=== PATIENT | male | born 1955 | race Caucasian/White ===

== ENCOUNTER 2017-03-01 11:02 | Emergency (ER) | payer MEDICARE, MEDICAID ==
[~2017-03-01] VITALS: Ht 182.9 cm; Wt 89.5 kg
[~2017-03-01 11:02] MED LIST changes: -AMOX-355 PO
--- OUTSIDE RECORDS SUMMARY | 2017-03-01 11:07 | XMS REPORT | Continuity of Care Document ---
Author Author [facility] Organization [facility] Address Unknown Phone Unavailable Care Team Providers Care Services Executive Name Role Phone ELEANOR SANDOVAL MD PCP [phone] Insurance Providers Payer Name Policy Number Subscriber Name Relationship Medicare A And B [id number] Pratik Valencia 18 Self / Same As Patient [facility] [id number] Pratik Valencia 16 Self / Same As Patient Chief Complaint and Reason for Visit Chief Complaint Altered Neurologic Status Reason for Visit Hypoglycemia Problems Medical Problems Problem Onset Date Status thrush 03/25/2013 Resolved Blood glucose abnormal 09/01/2013 Active Cellulitis 09/04/2013 Active Diabetic complication 09/04/2013 Active Diabetic neuropathy 09/04/2013 Active 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 Ketoacidosis in diabetes mellitus 09/05/2013 Active Cellulitis of leg 10/01/2013 Active Hyperkalemia 05/15/2014 Active Altered mental status 01/13/2015 Active Diabetic nephropathy 01/15/2015 Active CHF (congestive heart failure) 01/15/2015 Active Pain ~01/23/2015 Active Headache ~01/23/2015 Active Hypoglycemia Unknown Active Medications Medication Dose Route Sig Days/Qty Instructions Order Date Discontinued Date Status Oxycodone Hcl 30 Mg ORAL TWICE A DAY PRN up to 5 x daily 03/25/13 Discontinued [Oxycontin] 40 Mg ORAL EVERY 8HRS PRN 03/25/13 09/06/13 Discontinued Carvedilol 25 Mg ORAL TWICE A DAY WITH MEALS 09/03/13 Active Insulin Determir 23 Units SQ TWICE A DAY 09/03/13 09/06/13 Discontinued Insulin Aspart 15 Unit SQ THREE TIMES A DAY 09/03/13 05/11/14 Discontinued Insulin Aspart 16 Unit SQ lunch 09/03/13 09/06/13 Discontinued Insulin Aspart 12 Unit SQ supper 09/03/13 09/06/13 Discontinued Furosemide 40 Mg ORAL DAILY 09/03/13 05/10/14 Discontinued Polyethylene Glycol 17 Gm ORAL DAILY PRN CONSTIPATION 09/03/13 Active Clonidine Hcl 0.1 Mg ORAL TWICE A DAY 09/03/13 09/06/13 Discontinued Atorvastatin 20 Mg ORAL BEDTIME 09/03/13 Active Amlodipine Besylate 10 Mg ORAL DAILY 09/03/13 01/13/15 Discontinued Lisinopril (Zestril) 40 Mg ORAL DAILY 09/03/13 01/13/15 Discontinued Simvastatin 40 Mg ORAL BEDTIME 09/03/13 09/06/13 Discontinued Potassium Chloride 20 Meq ORAL THREE TIMES DAILY WITH MEALS 09/03/13 05/15/14 Discontinued Duloxetine HCl 30 Mg ORAL DAILY 09/03/13 09/06/13 Discontinued Oxycodone Hcl 40 Mg ORAL EVERY 8HRS 09/06/13 05/15/14 Discontinued Insulin Glargine,Hum.rec.anlog 12 Unit SQ BEDTIME 09/06/13 05/10/14 Discontinued Clindamycin HCl 300 Mg ORAL FOUR TIMES DAILY 09/06/13 10/01/13 Discontinued Dextrose 15 Gm ORAL NEEDED PRN HYPOGLYCEMIA 09/06/13 01/13/15 Discontinued Glucagon,Human Recombinant 1 Mg INTAMUSCULAR NEEDED PRN HYPOGLYCEMIA 09/06/13 01/13/15 Discontinued Omeprazole 20 Mg ORAL DAILY 09/06/13 Active Insulin Aspart 5 Unit SQ EVERY 2 HOURS WHILE AWAKE PRN ACCUCHEK ABOVE 250 10/01/13 01/13/15 Discontinued Doxycycline Monohydrate 100 Mg ORAL TWICE A DAY 10/01/13 05/10/14 Discontinued Oxycodone Hcl 30 Mg ORAL NEEDED 10/01/13 05/11/14 Discontinued [Clonidine ] 05/10/14 05/11/14 Discontinued [Lamisil] 05/10/14 05/11/14 Discontinued [Ascriptin] 05/10/14 05/11/14 Discontinued [Lasix 40 Mg] 05/10/14 05/11/14 Discontinued [Catapress] 05/10/14 05/11/14 Discontinued Insulin Aspart 15 Unit SQ THREE TIMES DAILY WITH MEALS 05/11/1405/22 Discontinued Oxycodone Hcl 30 Mg ORAL Q5H PRN PAIN 05/11/14 05/15/14 Discontinued Clonidine Hcl 0.1 Mg ORAL BEDTIME 05/11/14 05/15/14 Discontinued Terbinafine 250 Mg ORAL DAILY 3 Days 05/11/14 05/15/14 Discontinued Aspirin (Aspirin EC) 81 Mg ORAL DAILY 05/11/14 Active Furosemide 40 Mg ORAL BID@05/11/14 01/13/15 Discontinued Clonidine Hcl 0.2 Mg ORAL DAILY 05/11/14 05/15/14 Discontinued Insulin Detemir (Insulin Levemir) 18 Unit SQ BEDTIME 05/11/14 Discontinued Gabapentin 300 Mg ORAL BEDTIME 05/11/14 01/13/15 Discontinued Potassium Chloride 20 Meq ORAL TWICE A DAY WITH MEALS 60 Qty 05/15/14 01/13/15 Discontinued Insulin Aspart 7 Unit SQ THREE TIMES DAILY WITH MEALS 1 Qty 05/15/14 01/13/15 Discontinued Insulin Detemir (Insulin Levemir) 20 Unit SQ BEDTIME 1 Qty 05/15/14 Discontinued Docusate Sodium 100 Mg ORAL TWICE A DAY PRN CONSTIPATION 30 Qty Active Oxycodone Hcl 40 Mg ORAL EVERY 12 HOURS 60 Qty 05/15/14 01/13/15 Discontinued Oxycodone Hcl 30 Mg ORAL EVERY 12 HOURS PRN PAIN 60 Qty 05/15/1401/15 Discontinued Mupirocin 1 Applic TOPICAL TWICE A DAY 1 Qty 05/15/14 01/13/15 Discontinued Hydralazine Hcl 50 Mg ORAL THREE TIMES A DAY 01/13/15 01/15/15 Discontinued Oxycodone Hcl 60 Mg ORAL THREE TIMES A DAY 01/13/15 01/14/15 Discontinued Duloxetine HCl 60 Mg ORAL DAILY 01/13/15 01/15/15 Discontinued Canagliflozin 100 Mg ORAL DAILY 01/13/15 01/13/15 Discontinued Magnesium Hydroxide 400 Mg ORAL NEEDED 01/13/15 Active Nitroglycerin 0.4 Mg SUBLINGUAL NEEDED 01/13/15 Active Insulin Detemir (Insulin Levemir) 34 Unit SUBCUTANEOUS BEDTIME Active Insulin Aspart 15 Unit SQ ACBREAKFAST 01/13/15 Active Insulin Aspart 7 Unit SQ AC LUNCH 01/13/15 Active Insulin Aspart 14 Unit SQ AC SUPPER 01/13/15 Active Oxycodone HCl 60 Mg ORAL EVERY 8HRS 01/14/15 01/15/15 Discontinued Canagliflozin 100 Mg ORAL DAILY 01/14/15 01/15/15 Discontinued Lisinopril (Zestril) 40 Mg ORAL DAILY 01/14/15 01/15/15 Discontinued Oxycodone Hcl 30 Mg ORAL THREE TIMES A DAY PRN PAIN 90 Qty 01/15/15 Discontinued Lisinopril (Zestril) 20 Mg ORAL DAILY 30 Qty 01/15/15 01/25/15 Discontinued Oxycodone Hcl 60 Mg ORAL EVERY 8HRS 90 Qty 01/15/15 Active Lisinopril (Zestril) 20 Mg ORAL TWICE A DAY 01/25/15 Active Oxycodone Hcl 30 Mg ORAL THREE TIMES A DAY PRN PAIN 01/25/15 Active Menthol/Zinc Oxide 3.5 Gm TOPICAL NEEDED 01/25/15 Active [A&D Onit] 0 TOPICAL TWICE A DAY 01/25/15 Active Social History No social history. Hospital Discharge Instructions No hospital discharge instructions. Plan of Care Discharge Date 03/10/15 12:31pm Disposition 01 HOME OR SELF-CARE Condition at Discharge Stable Instructions/Education Provided Diabetes Mellitus Type 2 in Adults (ED) Prescriptions See Medications Section Follow-up Orders BASIC METABOLIC PANEL* BASIC METABOLIC PANEL* B-TYPE NATRIURETIC PEPTIDE Referrals ELEANOR SANDOVAL MD Additional Instructions/Education Follow up with your doctor. Call your doctor in regard to blood sugar/insuling management. ED JAQCUELINE if any worse. Some of your test results may not be complete prior to your leaving the Emergency Department. The Emergency Department is not authorized to give test results over the phone. Please contact the doctor's office listed in this packet of information for your final results. Follow up with your primary care physician or return to the Emergency Department for worsening or worrisome symptoms. * Emergency Department phone number: [phone], x [phone]* MEDICAL RECORD If you need copies of your X-rays, call [phone]. If you need copies of your medical record, including lab results, a signed authorization for release of records will be required. A telephone call for release of Health Information is not allowed. BILLING Billing can sometimes be confusing and frustrating. To help avoid confusion in the future, please take a moment to acquaint yourself with the billing parties for services. SERVICE BILLING [employer] Emergency Room Services [facility] Physician Services [facility] X-rays [facility] Patients will receive bills for services from the appropriate provider. If you have any questions about your [facility] bill, our staff will be happy to assist you. Please call [phone], and ask for the billing department. THANK YOU for choosing [facility] as your emergency care provider! Functional Status No functional status results. Allergies, Adverse Reactions, Alerts Allergen Type Severity Reaction Status Last Updated metoclopramide HCl Allergy Unknown Active 05/10/14 ketorolac tromethamine Allergy Unknown Active 05/10/14 duloxetine HCl Allergy Unknown NAUSEA Active 05/10/14 Acetaminophen Allergy Unknown Active 05/10/14 diphenhydramine Allergy Unknown Active 05/10/14 topiramate Allergy Unknown Active 05/10/14 pregabalin Adverse Reaction Unknown N/V Active 01/25/15 Immunizations No immunization records. Vital Signs Acute Vital Signs Vital Response Date/Time Temperature (Fahrenheit) 97.8 Pulse 71 bpm Respirations 18 Height 6 ft 0 in Weight 222 lb Body Mass Index 30.0 kg/m^2 Results Test Source Date Result Interp. Ref. Range Comments Absolute Band Neutrophils January 13, 2015 2:52pm 0.6 # Acetone Level May 10, 2014 7:00am 2+ MG/DL Negative Collected by nurse? YHas specimen been collected/obtained? Y Activated Partial Thromboplast Time March 10, 2015 10:30am 28.5 SEC N 24.9 -35.9 Alanine Aminotransferase (ALT/SGPT) March 10, 2015 10:30am 25 U/L L 30-65 Albumin March 10, 2015 10:30am 3.3 g/dL L 3.4-5.0 Albumin/Globulin Ratio March 10, 2015 10:30am 1.000 L 1.1-1.8 Alkaline Phosphatase March 10, 2015 10:30am 156 U/L H 38-126 Juvenal Test September 02, 2013 6:20am pos Collected by nurse? NSpecimen Comment: 2 L/nc 2L Ammonia September 02, 2013 9:55am 16 umol/L 9-35 Collected by nurse? NComments to [employer]: on next blood draw Amylase Level January 13, 2015 2:52pm 108 U/L N 25-115 Anion Gap March 10, 2015 10:30am 11.9 MEQ/L N 3-15 Arterial Blood Base Excess September 02, 2013 6:20am 3.0 N -2.0-3.0 Collected by nurse? NSpecimen Comment: 2 L/nc 2L Arterial Blood HCO3 September 02, 2013 6:20am 28.0 MEQ/L H 22.0-26.0 Collected by nurse? NSpecimen Comment: 2 L/nc 2L Arterial Blood Oxygen Saturation September 02, 2013 6:20am 98 % N 95-98 Collected by nurse? NSpecimen Comment: 2 L/nc 2L Arterial Blood Partial Pressure CO2 September 02, 2013 6:20am 47 mmHg H 35 -45 Collected by nurse? NSpecimen Comment: 2 L/nc 2L Arterial Blood Partial Pressure O2 September 02, 2013 6:20am 117 mmHg H 80 -105 Collected by nurse? NSpecimen Comment: 2 L/nc 2L Arterial Blood Total CO2 September 02, 2013 6:20am 30.0 GRACIELA/L H 23.0-27.0 Collected by nurse? NSpecimen Comment: 2 L/nc 2L Arterial Blood pH September 02, 2013 6:20am 7.39 N 7.35-7.45 All ABG Results called to toni brano read back the results. Called by Hector De La O at [id number] Aspartate Amino Transf (AST/SGOT) March 10, 2015 10:30am 24 U/L N 15-37 B-Type Natriuretic Peptide January 13, 2015 5:20pm 143 PG/ML H 0-100 BUN/Creatinine Ratio March 10, 2015 10:30am 22 H 10-20 Band Neutrophils % January 13, 2015 2:52pm 6 % N 0-6 Basophils # (Auto) March 10, 2015 10:30am 0.0 10^3uL Basophils % (Manual) January 13, 2015 2:52pm 0 % N 0-2 Basophils (%) (Auto) March 10, 2015 10:30am 1 % N 0-2 Bedside Venous Blood Total CO2 May 10, 2014 8:28am 12 Collected by nurse? NVenous blood Blood Gas Liter Flow September 02, 2013 6:20am 2.0 LPM Collected by nurse? NSpecimen Comment: 2 L/nc 2L Blood Gas Puncture Site May 10, 2014 8:28am L finger Collected by nurse? NVenous blood Blood Morphology Comment January 13, 2015 2:52pm Normal NORMAL Blood Urea Nitrogen March 10, 2015 10:30am 41 mg/dL DH 7-18 C-Reactive Protein January 13, 2015 2:52pm 1.60 MG/DL H 0.0-0.9 Calcium Level March 10, 2015 10:30am 8.7 mg/dL L 8.8-10.8 Calcium/Ionized Calcium Ratio March 10, 2015 10:30am 4.0 mg/dL N 3.8-4.6 Calculated Osmolality March 10, 2015 10:30am 272 mosm/L L 280-300 Carbon Dioxide Level March 10, 2015 10:30am 22 mmol/L N 22-29 Chloride Level March 10, 2015 10:30am 107 mmol/L N 98-108 Cholesterol Level November 28, 2014 5:00am 115 mg/dL N 50-200 Cholesterol Risk Factor November 28, 2014 5:00am 1.8 N 0.0-5.0 Creatine Kinase MB January 25, 2015 10:23pm 3.2 NG/ML N 0.0-6.0 Creatinine March 10, 2015 10:30am 1.89 mg/dL H 0.8-1.5 Differential Total Cells Counted January 13, 2015 2:52pm 100 Eosinophils # January 13, 2015 2:52pm 0.0 # Eosinophils # (Auto) March 10, 2015 10:30am 0.3 10^3uL Eosinophils % (Manual) January 13, 2015 2:52pm 0 % N 0-4 Eosinophils (%) (Auto) March 10, 2015 10:30am 4 % N 0-4 Erythrocyte Sedimentation Rate November 30, 2014 2:00am 41 mm/hr H 0-19 Estimat Glomerular Filtration Rate March 10, 2015 10:30am 44.1 Estimated GFR (Non- March 10, 2015 10:30am 36.4 Glucose Level March 10, 2015 10:30am 67 mg/dL DL 70-110 HDL Cholesterol November 28, 2014 5:00am 64 mg/dL H 40-60 HDL Triglycerides November 28, 2014 5:00am 78 mg/dL N 10-150 Hematocrit March 10, 2015 10:30am 32.70 % L 39.00-50.00 Hemoglobin March 10, 2015 10:30am 10.5 g/dL L 13.5-17.0 Hemoglobin A1c February 26, 2015 6:00am 8.1 % H 4.0-6.0 LDL Cholesterol (Measured) November 28, 2014 5:00am 35 mg/dL L 50-130 Lipase January 13, 2015 2:52pm 25 U/L N 23-300 Lymphocytes # January 13, 2015 2:52pm 1.0 # Lymphocytes # (Auto) March 10, 2015 10:30am 1.9 X10^3 Lymphocytes % (Manual) January 13, 2015 2:52pm 10 % L 20-46 Lymphocytes (%) (Auto) March 10, 2015 10:30am 24 % N 20-46 Mean Corpuscular Hemoglobin March 10, 2015 10:30am 29.7 PG N 26.0-34.0 Mean Corpuscular Hemoglobin Concent March 10, 2015 10:30am 32.1 g/dL N 31.0-37.0 Mean Corpuscular Volume March 10, 2015 10:30am 92 FL N 80-100 Mean Platelet Volume March 10, 2015 10:30am 9.4 FL N 6.0-9.5 Metamyelocytes % August 15, 2014 5:40am 0 % N 0-1 Microcytosis August 07, 2014 5:30am Slight Monocytes # January 13, 2015 2:52pm 0.4 # Monocytes # (Auto) March 10, 2015 10:30am 0.5 X10^3 Monocytes % (Manual) January 13, 2015 2:52pm 4 % N 3-11 Monocytes (%) (Auto) March 10, 2015 10:30am 7 % N 3-11 RB-Aoo-K-Type Natriuretic Peptide January 13, 2015 5:20pm 1870 pg/mL H 0- 125 <300 ng/mL - HF unlikely Age <50 years, NT-proBNP >450 pg/mL - HF Likely Age 50-75 yrs, NT-proBNP >900 pg/mL - HF Likely Age >75 yrs, NT-proBNP >1800 - HF likely Neutrophils # January 13, 2015 2:52pm 8.3 # Neutrophils # (Auto) March 10, 2015 10:30am 5.1 X10^3 Neutrophils (%) (Auto) March 10, 2015 10:30am 65 % N 51-67 Phosphorus Level January 14, 2015 1:05pm 4.4 MG/DL N 2.4-4.9 Collected by nurse? N Platelet Count March 10, 2015 10:30am 278 10^3uL N 150-450 Potassium Level March 10, 2015 10:30am 4.9 mmol/L N 3.5-5.1 Prothromb Time International Ratio March 10, 2015 10:30am 0.9 N 0.8-1.4 Prothrombin Time March 10, 2015 10:30am 11.9 SEC N 11.9-14.2 Red Blood Count March 10, 2015 10:30am 3.54 10^6uL L 4.50-5.50 Red Cell Distribution Width March 10, 2015 10:30am 13.3 % N 11.8-15.6 Segmented Neutrophils % January 13, 2015 2:52pm 80 % H 51-67 Sodium Level March 10, 2015 10:30am 136 mmol/L N 135-150 Thyroid Stimulating Hormone (TSH) January 13, 2015 2:52pm 1.00 UIU/mL N 0.46-4.68 Total Bilirubin March 10, 2015 10:30am 0.3 mg/dL N 0.1-1.0 Total Creatine Kinase January 25, 2015 10:23pm 82 U/L DN 55-170 Total Protein March 10, 2015 10:30am 6.6 g/dL N 6.4-8.5 Troponin I January 25, 2015 10:23pm < 0.012 ng/mL 0.010-0.080 Ur Tricyclic Antidepressants Screen January 13, 2015 3:40pm Negative Negative Urine collection method Clean Catch Urine Amorphous Sediment May 10, 2014 7:00am 2+ /HPF H Collected by nurse? NUrine collection method Catheter Urine Amphetamines Screen January 13, 2015 3:40pm Negative Negative Urine collection method Clean Catch Urine Bacteria March 10, 2015 11:45am None seen /HPF Urine collection method Clean Catch Urine Barbiturates Screen January 13, 2015 3:40pm Negative Negative Urine collection method Clean Catch Urine Benzodiazepines Screen January 13, 2015 3:40pm Negative Negative Urine collection method Clean Catch Urine Bilirubin March 10, 2015 11:45am Negative Negative Urine collection method Clean Catch Urine Blood January 13, 2015 3:40pm Negative Negative Urine collection method Clean Catch Urine Cannabinoids Screen January 13, 2015 3:40pm Negative Negative Urine collection method Clean Catch Urine Clarity March 10, 2015 11:45am Clear Urine collection method Clean Catch Urine Cocaine Screen January 13, 2015 3:40pm Negative Negative Urine collection method Clean Catch Urine Collection Type March 10, 2015 11:45am Clean catch Urine collection method Clean Catch Urine Color March 10, 2015 11:45am Yellow Urine collection method Clean Catch Urine Glucose (UA) March 10, 2015 11:45am Negative Negative Urine collection method Clean Catch Urine Hyaline Casts March 10, 2015 11:45am 1+ /LPF Urine collection method Clean Catch Urine Ketones March 10, 2015 11:45am Negative Negative Urine collection method Clean Catch Urine Leukocyte Esterase March 10, 2015 11:45am Negative Negative Urine collection method Clean Catch Urine Methadone Screen January 13, 2015 3:40pm Negative Negative Urine collection method Clean Catch Urine Methamphetamines Screen January 13, 2015 3:40pm Negative NEGATIVE Urine collection method Clean Catch Urine Microscopic WBC January 13, 2015 3:40pm 0-2 /HPF Urine collection method Clean Catch Urine Mucus March 10, 2015 11:45am 1+ Urine collection method Clean Catch Urine Nitrite March 10, 2015 11:45am Negative Negative Urine collection method Clean Catch Urine Opiates Screen January 13, 2015 3:40pm Positive H Negative Urine collection method Clean Catch Urine Oxycodone Screen January 13, 2015 3:40pm Positive H NEGATIVE Urine collection method Clean Catch Urine Phencyclidine Screen January 13, 2015 3:40pm Negative Negative Phencyclidine testing by this method can showcross-reactivity with several common medications such as venlafaxine, dextromethorphan, and diphenhydramine. Submission of any positive sample for confirmatory testing is recommended. Urine Propoxyphene Screen January 13, 2015 3:40pm Negative NEGATIVE Results of this screen are qualitative and are presumptiveresults. A more specific method (i.e. GC/MS) must be used if confirmation of results is indicated. Urine Protein March 10, 2015 11:45am 3+ H Negative Urine collection method Clean Catch Urine RBC March 10, 2015 11:45am 0-2 /HPF Urine collection method Clean Catch Urine RBC (Auto) March 10, 2015 11:45am Trace-intact H Negative Urine collection method Clean Catch Urine Specific [place] March 10, 2015 11:45am 1.025 1.005-1.030 Urine collection method Clean Catch Urine Squamous Epithelial Cells March 10, 2015 11:45am 0-2 /LPF Urine collection method Clean Catch Urine Urobilinogen March 10, 2015 11:45am 0.2 mg/dL 0.2-1.0 Urine collection method Clean Catch Urine WBC March 10, 2015 11:45am 0-2 /HPF Urine collection method Clean Catch Urine pH March 10, 2015 11:45am 7.0 5.0 - 8.0 Urine collection method Clean Catch VLDL Cholesterol November 28, 2014 5:00am 16 mg/dL N 4.00-40.00 Vancomycin Level Trough September 05, 2013 11:40am 12.5 UG/ML N 10.0-15.0 Collected by nurse? NCollected by nurse? N Venous Blood Base Excess May 10, 2014 8:28am -17.0 L 3.0-3.0 Collected by nurse? NVenous blood Venous Blood HCO3 May 10, 2014 8:28am 11.0 MEQ/L L 20.0-26.0 Collected by nurse? NVenous blood Venous Blood O2 Saturation (Calc) May 10, 2014 8:28am 87 % H 60-80 Collected by nurse? NVenous blood Venous Blood pCO2 at Patient Temp May 10, 2014 8:28am 27 mmHg L 38-55 Collected by nurse? NVenous blood Venous Blood pH May 10, 2014 8:28am 7.22 L 7.32-7.43 Collected by nurse? NVenous blood Venous Blood pO2 at Patient Temp May 10, 2014 8:28am 62 mmHg H 38-55 Collected by nurse? NVenous blood Volume Urine Centrifuged March 10, 2015 11:45am 12 ml Urine collection method Clean Catch White Blood Count March 10, 2015 10:30am 7.88 10^3uL N 4.0-11.0 Blood Culture Peripheral-:Lab Indicates After Collectio September 02, 2013 1: 10am No Growth in 5 days MRSA Screen Nasal September 03, 2013 12:15am Urine Culture Urine-Mead Cath September 02, 2013 10:15pm Procedures Procedure Status Date Provider(s) GLYCOSYLATED HEMOGLOBIN TEST completed 02/26/15 Encounters Encounter Location Date/Time Departed Emergency Room [facility] 03/10/15 9:51am Registered Clinic [facility] 03/07/15 2:54pm Recent Diagnosis
[2017-03-01] MEDS ORDERED: SODIUM CHLORIDE FLUSH 10 ML SYR IV PRN (11:30)
[2017-03-01] MEDS ORDERED: CEFEPIME 2,000 MG in SODIUM CHLORIDE 100 ML IV ONE (11:30)
[2017-03-01] MEDS ORDERED: OXYC60TA7 PO (11:32)
[2017-03-01] MEDS ORDERED: INSU100I14 SQ (11:32)
[2017-03-01] MEDS ORDERED: TERA5CAP3 PO (11:32)
[2017-03-01] MEDS ORDERED: ERTAPENEM 1 GM in SODIUM CHLORIDE 50 ML IV ONE (11:45)
[2017-03-01 11:55] LABS: BASOPHILS % (AUTO) 1 % (0-2); EOSINOPHILS # (AUTO) 0.2 10^3uL; EOSINOPHILS % (AUTO) 2 % (0-4); MEAN CORPUSCULAR HEMOGLOBIN 28.3 PG (26.0-34.0); MEAN CORPUSCULAR VOLUME 92 FL (80-100); MEAN PLATELET VOLUME 9.1 FL (6.0-9.5); MONOCYTES # (AUTO) 0.5 X10^3; MONOCYTES % (AUTO) 5 % (3-11); NEUTROPHILS # (AUTO) 8.2 X10^3; NEUTROPHILS % (AUTO) 82 % (51-67); PLATELET COUNT 256 10^3uL (150-450); WHITE BLOOD COUNT 10.01 10^3uL (4.0-11.0)
[2017-03-01 11:56] LABS: MEAN CORPUSCULAR HGB CONC 30.8 g/dL (31.0-37.0)
[2017-03-01 12:05] LABS: ALBUMIN 3.1 g/dL (3.4-5.0); ANION GAP 13.7 MEQ/L (3-15); CALCULATED IONIZED CALCIUM 3.5 mg/dL (3.8-4.6); TOTAL PROTEIN 6.9 g/dL (6.4-8.5)
[2017-03-01] MEDS ORDERED: INSULIN REGULAR 1 UNIT/0.01 ML DOSE SC ONE (12:35)
[2017-03-01] MEDS ORDERED: INSULIN LISPRO 1 UNIT/0.01 ML (HUMALOG) DOSE SC ONE (12:40)
[2017-03-01] MEDS ORDERED: AMOX-355 PO (12:56)
[2017-03-01 13:03] VITALS: BP 163/81
== END 2017-03-01 13:07 | disposition home or self-care (01) ==
LOC: EDUNIT# 11:02 → ED 11:03
DX: E11.621 Type 2 diabetes mellitus with foot ulcer (principal); E11.42 Type 2 diabetes mellitus with diabetic polyneuropathy; F17.210 Nicotine dependence, cigarettes, uncomplicated
CPT/HCPCS: 36415; 80053; 85025; 96365; 99283; J1335; J1642

== ENCOUNTER → 2017-03-01 | Outpatient (CLI) | payer MEDICARE, MEDICAID ==
[~2017-03-01] MED LIST: AML5T PO; AMLO10TA4 PO; AMLO10TA82; AMOX-355 PO; AMOX1TAB12 PO; ASCRIPTIN; ASP81TEC PO; ATOR20TA PO; CANA100T PO; CANA300T PO; CARV25TA30 PO; CATAPRESS; CEFE2VIA3 IV; CHOL100048 PO; CLIN-78 PO; CLON0.1T PO; CLON0.1T14 PO; CLON0.2T12 PO; CLONIDINE; CRV25T PO; CTLP20T PO; DOCU-243 PO; DOXY150C PO; DULO30CA PO; DULO60CA7 PO; FAMO20TA13 PO; FRSM40T PO; FURO-124 PO; GABA300C PO; GLUC1KIT IM; GLUC1KIT4 IM; HYDR-3922 PO; INSASP1U SQ; INSU100I14 SQ; INSU100I33 SQ; INSU100I5 SQ; INSU100V32 SQ; INSU100V5 SC; INSU100V5 SQ; LABE100T PO; LAMISIL; LASIX 40 MG; LEVE500T PO; LIRA0.6P2 SC; LSNP20T PO; MAGN400O7 PO; MENT3.5O TP; METO10TA7 PO; MIRALAX 17 GM P17 GM PO; MULT-28 PO; MUPI22OI TOP; NF-LISIN40 PO; NITR0.4T SL; NUT.237L30 PO; OMEP20CA6 PO; ONDA4TAB11 PO; ONDN4T PO; OXC10TCR PO; OXC40TCR PO; OXYC15TA PO; OXYC20TA72 PO; OXYC30TA PO; OXYC30TA80 PO; OXYC40TA46 PO; OXYC60TA7 PO; OXYCONTIN PO; POTA20TA15 PO; SIMV40TA2 PO; TERA1CAP3 PO; TERA5CAP3 PO; TERBIN250T PO; TUBE5VIA ID; VANC500V3 IV; VERA120T6 PO; VERA180T5 PO; VERA360C2 PO; [UNRECOGNIZED DRUG - CODE] PO; [UNRECOGNIZED DRUG - OTHER] TOP
== END ==
LOC: EMS 10:50
PROVIDERS: ATTEND Emergency Medicine
DX: E11.621 Type 2 diabetes mellitus with foot ulcer (principal)

== ENCOUNTER 2017-03-17 16:29 | Emergency (ER) | payer MEDICARE, MEDICAID ==
[~2017-03-17] VITALS: Ht 185.4 cm; Wt 93.0 kg
[~2017-03-17 16:29] MED LIST changes: +AMOX-355 PO
[2017-03-17 16:35] VITALS: BP 136/77
--- OUTSIDE RECORDS SUMMARY | 2017-03-17 16:35 | XMS REPORT | Continuity of Care Document ---
Author Author [facility] Organization [facility] Address Unknown Phone Unavailable Care Team Providers Care Waxer Operator Name Role Phone ELEANOR SANDOVAL MD PCP [phone] Insurance Providers Payer Name Policy Number Subscriber Name Relationship Medicare A And B [id number] Pratik Valencia 16 Self / Same As Patient [facility] [id number] Pratik Valencia 16 Self / Same As [...] in regard to blood sugar/insuling management. ED JACQUELINE if any worse. Some of your test [...] worrisome symptoms. * Emergency Department phone number: [phone], x [phone]* MEDICAL RECORD If you need copies of your X-rays, call [phone] x [phone]. If you need copies of [...] the billing parties for services. SERVICE BILLING [employer] Emergency Room Services [facility] Physician Services [facility] X-rays [facility] Patients will receive bills for services from the appropriate provider. If you have any questions about your [facility] bill, our staff will be happy to assist you. Please call [phone], and ask for the billing department. THANK YOU for choosing [facility] as your emergency care provider! Functional [...] umol/L 9-35 Collected by nurse? NComments to Call Specialist: on next blood draw Amylase Level January [...] 10, 2015 10:30am 7 % N 3-11 [id number]-Type Natriuretic Peptide January 13, 2015 5:20pm 1870 [...] Urine collection method Clean Catch Urine Specific [place] March 10, 2015 11:45am 1.025 1.005-1.030 Urine [...] Encounters Encounter Location Date/Time Departed Emergency Room [facility] 03/10/15 9:51am Registered Clinic [facility] 03/07/15 2:54pm Recent Diagnosis
--- OUTSIDE RECORDS SUMMARY | 2017-03-17 16:36 | XMS REPORT | Continuity of Care Document ---
Author Author [facility] Organization [facility]IS Address Unknown Phone Unavailable Care Team Providers Care Fire Management Technician Name Role Phone ELEANOR SANDOVAL MD PCP [phone] Insurance Providers Payer Name Policy Number Subscriber Name Relationship Medicare A And B [id number] Pratik Valencia 16 Self / Same As Patient [facility] [id number] Pratik Valencia 16 Self / Same As [...] worrisome symptoms. * Emergency Department phone number: [phone], x [phone]* MEDICAL RECORD If you need copies of your X-rays, call [phone] x [phone]. If you need copies of [...] the billing parties for services. SERVICE BILLING [employer] Emergency Room Services [facility] Physician Services [facility] X-rays [facility] Patients will receive bills for services from the appropriate provider. If you have any questions about your [facility] bill, our staff will be happy to assist you. Please call [phone], and ask for the billing department. THANK YOU for choosing [facility] as your emergency care provider! Functional Status [...] umol/L 9-35 Collected by nurse? NComments to [employer]: on next blood draw Amylase Level January [...] Total CO2 September 02, 2013 6:20am 30.0 GRCAIELA/L H 23.0-27.0 Collected by nurse? NSpecimen Comment: [...] 10, 2015 10:30am 7 % N 3-11 [id number]-I-Type Natriuretic Peptide January 13, 2015 5:20pm 1870 [...] Urine collection method Clean Catch Urine Specific [place] March 10, 2015 11:45am 1.025 1.005-1.030 Urine [...] Encounters Encounter Location Date/Time Departed Emergency Room [facility] 03/10/15 9:51am Registered Clinic [facility] 03/07/15 2:54pm Recent Diagnosis
--- NOTE | 2017-03-17 17:01 | NUR ---
Patient report received from Pete Argueta RN. Care of pt now assumed by this nurse.
[2017-03-17] MEDS ORDERED: NICOTINE 21 MG (NICODERM) PATCH TD ONE (17:20)
[2017-03-17] MEDS ORDERED: OXYC80TA42 PO (17:23)
[2017-03-17] MEDS ORDERED: ONDANSETRON 4 MG (ZOFRAN) ORAL DISSOLVE TAB PO ONE (18:05)
--- NOTE | 2017-03-17 18:25 | NUR ---
REPORTS FEELING NAUSEATED BUT IS HUNGRY. GIVEN ZOFRAN 4 MG ODT AND IS EATING FOOD BROUGHT FROM HOME. DR. HUTCHINS AWARE THAT PT IS EATING ZOFRAN GIVEN.
--- NOTE | 2017-03-17 18:50 | NUR ---
PATIENT FREQUENTLY CHANGES POSITION - ECG LEADS AND BP CUFF TUBING FREQUENTLY OFF AND RE-ATTACHED.
[2017-03-17] MEDS ORDERED: SODIUM CHLORIDE 0.9% NEB SOLN 3 ML VIAL ONE (19:04)
[2017-03-17] MEDS ORDERED: ALBUTEROL 0.5% NEB SOLUTION 2.5 MG/0.5 ML VIAL INH ONE (19:05)
--- NOTE | 2017-03-17 19:05 | NUR ---
PATIENT HAS REQUESTED THAT HE BE ALLOWED TO GO TO [facility] BY [facility]. DR. HUTCHINS HAS AGREED TO THIS AND [facility] NURSE (OLE DE PAZ) HAS SAID VAN WAS AVAILABLE AND THAT SHE WOULD CALL THE [employer] RELATIONS OFFICER.
--- NOTE | 2017-03-17 19:10 | NUR ---
PATIENT REPORTS HE CONTINUES TO WEAR CAM WALKER ON RT FOOT DUE TO PERSISTANT INFECTION IN "BOTTOM" OF RT FOOT.
== END 2017-03-17 19:38 | disposition short-term general hospital (02) ==
LOC: ED 16:30
DX: I13.11 Hypertensive heart and chronic kidney disease without heart failure, with stage 5 chronic kidney disease, or end stage renal disease (principal); E11.22 Type 2 diabetes mellitus with diabetic chronic kidney disease; N18.6 End stage renal disease; E87.5 Hyperkalemia
CPT/HCPCS: 93005; 94640; 99282; A9270; 93010; 99283

== ENCOUNTER 2017-03-27 17:21 | Emergency (ER) | payer MEDICARE, MEDICAID ==
[~2017-03-27] VITALS: Ht 185.4 cm; Wt 93.0 kg
[~2017-03-27 17:21] MED LIST changes: +OXYC80TA42 PO
[2017-03-27 17:24] VITALS: BP 158/62
--- OUTSIDE RECORDS SUMMARY | 2017-03-27 17:27 | XMS REPORT | Continuity of Care Document ---
Author Author [facility] Organization [facility] Address Unknown Phone Unavailable Care Team Providers Care Belt Loop Cutter Name Role Phone ELEANOR SANDOVAL MD PCP [phone] Insurance Providers Payer Name Policy Number Subscriber Name Relationship Medicare A And B [id number] Pratik Valencia 16 Self / Same As Patient [facility] [id number] Pratik Valencia 16 Self / Same As [...] worrisome symptoms. * Emergency Department phone number: [phone], x [phone]* MEDICAL RECORD If you need copies of your X-rays, call [phone] x [phone]. If you need copies of [...] the billing parties for services. SERVICE BILLING REPUBLICAN Emergency Room Services [facility] Physician Services [facility] X-rays [facility] Patients will receive bills for services from the appropriate provider. If you have any questions about your [facility] bill, our staff will be happy to assist you. Please call [phone], and ask for the billing department. THANK YOU for choosing [facility] as your emergency care provider! Functional [...] umol/L 9-35 Collected by nurse? 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
--- OUTSIDE RECORDS SUMMARY | 2017-03-27 17:28 | XMS REPORT | Continuity of Care Document ---
Author Author [facility] Organization [facility] Address Unknown Phone Unavailable Care Team Providers Care Telecommunications Sales Representative Name Role Phone ELEANOR SANDOVAL MD PCP [phone] Insurance Providers Payer Name Policy Number Subscriber Name Relationship Medicare A And B [id number] Pratik Valencia 16 Self / Same As Patient [facility] [id number] Pratik Valencia 16 Self / Same As [...] worrisome symptoms. * Emergency Department phone number: [phone], x [phone]* MEDICAL RECORD If you need copies of your X-rays, call [phone] x [phone]. If you need copies of [...] the billing parties for services. SERVICE BILLING LIBERTARIAN Emergency Room Services [facility] Physician Services [facility] X-rays [facility] Patients will receive bills for services from the appropriate provider. If you have any questions about your [facility] bill, our staff will be happy to assist you. Please call [phone], and ask for the billing department. THANK YOU for choosing [facility] as your emergency care provider! Functional Status [...] umol/L 9-35 Collected by nurse? 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
== END 2017-03-27 19:08 | disposition home or self-care (01) ==
LOC: ED 17:22
DX: E11.40 Type 2 diabetes mellitus with diabetic neuropathy, unspecified (principal); E11.621 Type 2 diabetes mellitus with foot ulcer; L97.411 Non-pressure chronic ulcer of right heel and midfoot limited to breakdown of skin; L97.519 Non-pressure chronic ulcer of other part of right foot with unspecified severity; Z79.4 Long term (current) use of insulin
CPT/HCPCS: 99281; 99282